=== PATIENT | female | born 2000 | race Caucasian/White ===

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

== ENCOUNTER 2019-01-01 20:17 | Emergency (ER) | payer MEDICAID, OTHER ==
[~2019-01-01] VITALS: Ht 157.5 cm; Wt 80.8 kg
[~2019-01-01 20:17] MED LIST changes: -CIPR500T4 PO; -GLYCOPYRROLATE 0.4 MG INJ ONE; -GLYCOPYRROLATE 1 MG INJ ONE; -HYDR-3498 PO; -HYDR-902 PO; -HYDR-906 PO; +IBUP-1542 PO; -IBUP800T25 PO; -LIDOCAINE 2% (SDV) 5 ML INJ ONE; -ONDA4TAB14 PO; -OXYC-279 PO; -PREN1TAB62 PO
[2019-01-01 20:19] VITALS: Ht 157.5 cm; Wt 80.8 kg
[2019-01-01] MEDS ORDERED: CEFTRIAXONE 1 GM/50 ML (PMX) 50 ML IVPB STA (20:21)
[2019-01-01] MEDS ORDERED: SODIUM CHLORIDE 0.9% 1L BAG IV* STA (20:21)
[2019-01-01] MEDS ORDERED: ACETAMINOPHEN 325 MG TAB PO STA (20:21)
[2019-01-01] MEDS ORDERED: IBUP-1542 PO (22:39)
[2019-01-01] MEDS ORDERED: ACET325T33 PO (22:39)
[2019-01-01] MEDS ORDERED: CEPH-443 PO (22:39)
--- NOTE | 2019-01-01 22:43 | ERD ---
ER Documentation Chief Complaint Chief Complaint R sided flank/AP x2 days w/ n/v, no diarrhea HPI Patient is a 18-year-old female with no medical problems who presents with fever and vomiting. She has pain in the right upper quadrant that is worse with breathing and laying down. She said the symptoms for the past 2 days. The sym ptoms come and go. She tried ibuprofen and Tylenol. ROS All systems reviewed and are negative except as per history of present illness. Medications Home Meds Active Scripts Acetaminophen* (Tylenol*) 325 Mg Tablet, 2 TAB PO Q8 PRN for PAIN AND OR ELEVATED TEMP, #20 TAB Prov:ANNETTE THORNE MD 01/01/19 Ibuprofen* (Motrin*) 600 Mg Tab, 600 MG PO Q6H PRN for PAIN AND OR ELEVATED TEMP, #30 TAB Prov:ANNETTE THORNE MD 01/01/19 Cephalexin* (Keflex*) 500 Mg Capsule, 500 MG PO BID for 7 Days, CAP Prov:ANNETTE THORNE MD 01/01/19 Ibuprofen* (Motrin*) 600 Mg Tab, 600 MG PO Q6, #30 TAB Prov:PRATEEK CASTRO PA-C 12/16/17 Allergies Allergies: Coded Allergies: No Known Drug Allergies (Unverified Allergy, Unknown, 01/01/19) PMhx/Soc History of Surgery: Yes (ERCP) Anesthesia Reaction: No Hx Neurological Disorder: No Hx Respiratory Disorders: No Hx Cardiac Disorders: No Hx Psychiatric Problems: No Hx Miscellaneous Medical Probl: No Hx Alcohol Use: No Hx Substance Use: No Hx Tobacco Use: No Smoking Status: Never smoker FmHx Family History: diabetes Physical Exam Vitals Vital Signs Date Temp Pulse Resp B/P (MAP) Pulse Ox O2 O2 Flow FiO2 Time Delivery Rate 01/01/19 110 23 112/65 100 Room Air 20:41 (81) 01/01/19 103.0 20:36 01/01/19 103.9 130 20 159/57 100 20:19 (91) Physical Exam Const: Moderate distress Head: Atraumatic Eyes: Normal Conjunctiva ENT: Normal External Ears, Nose and Mouth. Neck: Full range of motion. No meningismus. Resp: Clear to auscultation bilaterally Cardio: Tachycardic rate without murmur Abd: Right upper quadrant tenderness to palpation without rebound or guarding Skin: No petechiae or rashes Back: No midline or flank tenderness Ext: No cyanosis, or edema Neur: Awake and alert Psych: Normal Mood and Affect Result Diagram: 01/01/19203001/01/192030 Results 24 hrs Laboratory Tests Test 01/01/19 20:31 01/01/19 20:50 01/01/19 21:51 01/01/19 22:04 White Blood Count 11.4 10^3/ul Red Blood Count 4.22 10^6/ul Hemoglobin 13.1 g/dl Hematocrit 38.9 % Mean Corpuscular 92.2 fl Volume Mean Corpuscular 31.0 pg Hemoglobin Mean Corpuscular 33.7 g/dl Hemoglobin Concen t Red Cell 13.4 % Distribution Width Platelet Count 150 10^3/UL Mean Platelet 10.6 fl Volume Immature 0.400 % Granulocytes % Neutrophils % 89.8 % Lymphocytes % 4.9 % Monocytes % 4.7 % Eosinophils % 0.0 % Basophils % 0.2 % Nucleated Red 0.0 /100WBC Blood Cells % Immature 0.040 10^3/ul Granulocytes # Neutrophils # 10.2 10^3/ul Lymphocytes # 0.6 10^3/ul Monocytes # 0.5 10^3/ul Eosinophils # 0.0 10^3/ul Basophils # 0.0 10^3/ul Nucleated Red 0.0 10^3/ul Blood Cells # Prothrombin Time 13.8 Sec Prothrombin Time 1.1 Ratio INR International 1.05 Normalized Ratio Activated 30.5 Sec Partial Thrombopl ast Time Sodium Level 139 mmol/L Potassium Level 3.7 mmol/L Chloride Level 106 mmol/L Carbon Dioxide 24 mmol/L Level Anion Gap 9 Blood Urea 7 mg/dl Nitrogen Creatinine 0.77 mg/dl Est Glomerular > 60 mL/min Filtrat Rate mL/min Glucose Level 119 mg/dl Calcium Level 9.3 mg/dl Total Bilirubin 1.7 mg/dl Direct Bilirubin 0.00 mg/dl Indirect 1.7 mg/dl Bilirubin Aspartate Amino 16 IU/L Transf (AST/SGOT) Alanine 17 IU/L Aminotransferase (ALT/SGPT) Alkaline 69 IU/L Phosphatase Troponin I < 0.012 ng/ml Total Protein 7.5 g/dl Albumin 4.1 g/dl Globulin 3.40 g/dl Albumin/Globulin 1.20 Ratio POC Venous 1.3 mmol/L Lactate Urine Color YELLOW Urine Clarity CLOUDY Urine pH 6.0 Urine Specific 1.008 Reva Urine Ketones 1+ mg/dL Urine Nitrite POSITIVE mg/dL Urine Bilirubin NEGATIVE mg/dL Urine NEGATIVE mg/dL Urobilinogen Urine Leukocyte 2+ Homa/ul Esterase Urine Microscopic 16 /HPF RBC Urine Microscopic > 182 /HPF WBC Urine Squamous MODERATE /HPF Epithelial Cells Urine Bacteria MANY /HPF Urine Hemoglobin 3+ mg/dL Urine Glucose NEGATIVE mg/dL Urine Total NEGATIVE mg/dl Protein POC Beta HCG, NEGATIVE Qualitative Current Medications Medications Dose Sig/Silvia Start Time Status Last (Trade) Ordered Route PRN Stop Time Admin Dose Reason Admin Sodium 2,420 ml BOLUS OVER 2 01/01/19 DC 01/01/19 Chloride HOURS STAT 20: 20:38 (NS) IV* 01/01/19 20:22 650 mg ONCE STAT 01/01/19 DC 01/01/19 Acetaminophen PO 20: 20:36 (Tylenol 01/01/19 20:22 Tab) Ceftriaxone 50 ml @ ONCE STAT 01/01/19 DC 01/01/19 Sodium 100 mls/hr IVPB 20: 20:36 01/01/19 20:50 Procedures/MDM Ultrasound the gallbladder read by radiology. Chest x-ray read by radiology. Patient is a 18-year-old female who presents with fever, vomiting, and flank pain. The patient was found to have an acutely infected urine and I believe the patient has acute pyelonephritis. Lactic acid is normal and I do not believe the patient requires further work-up or admission in the hospital at this time. The patient will be discharged. She was given a dose of ceftriaxone. I doubt sepsis and she is otherwise healthy and young. The patient was to follow-up closely with her primary doctor within 24 to 48 hours. She will be treated with Keflex for 1 week course. She can use Tylenol and Motrin for fever reduction and pain. Departure Diagnosis: Primary Impression: Pyelonephritis Additional Impression: Flank pain Condition: Fair Patient Instructions: Pyelonephritis, Female (Adult) Referrals: Your doctor Additional Instructions: Call your primary care doctor TOMORROW for an appointment during the next 1-2 days.See the doctor sooner or return here if your condition worsens before your appointment time. ANNETTE THORNE MD Jan 01, 2019 22:43
[2019-01-01 22:48] VITALS: BP 97/55; PULSE 98; RESP 18
== END 2019-01-01 22:50 | disposition home or self-care (01) ==
LOC: E/R 20:17
DX: N12 Tubulo-interstitial nephritis, not specified as acute or chronic (principal)
CPT/HCPCS: 36415; 71045; 76705; 80053; 81001; 81025; 83605; 84484; 85025; 85610; 85730; 87040; 87086; 93005; 96365; J0696; J7030; Z7502; Z7610